=== PATIENT | female | born 1935 | race Caucasian/White ===

== ENCOUNTER 2023-04-13 20:57 | Emergency (ER) | payer OTHER, MEDICARE ==
[~2023-04-13] VITALS: Ht 160 cm; Wt 67.6 kg
[2023-04-13 21:10] VITALS: BP_SYST 160
== END 2023-04-14 01:12 | disposition home or self-care (01) ==
LOC: SED 20:57
DX: M25.561 Pain in right knee (principal); M25.562 Pain in left knee; Z79.899 Other long term (current) drug therapy; W01.0XXA Fall on same level from slipping, tripping and stumbling without subsequent striking against object, initial encounter; Y93.89 Activity, other specified; Y92.89 Other specified places as the place of occurrence of the external cause; Y99.8 Other external cause status
CPT/HCPCS: 73564; 99283